=== PATIENT | male | born 1960 | race Caucasian/White ===

== ENCOUNTER 2017-07-20 08:59 | Emergency (ER) | payer BC ==
[2017-07-20 09:08] VITALS: BP 149/89; PULSE 67; TEMP 98.1; BMI 26.4
[2017-07-20] MEDS ORDERED: IBUPROFEN 400 MG TABLET (FP) PO ONE ×2 (09:17→09:42)
--- NOTE | 2017-07-20 09:48 | PDOC ---
History of Present Illness - General Chief Complaint: Pain Stated Complaint: LEFT RING FINGER PAIN Time Seen by Provider: 07/20/17 09:17 History Source: Patient Exam Limitations: No Limitations - History of Present Illness Initial Comments: 07/20/17 10:12 56y M no known pmhx presents with complaitn of L ring finger pain. Pt states that he was fine yesrtserday, went to bed, and this morning woke up with hand pain. He deneis any trauma/injuries yesterday. States that he ewnt to sleep with his hands interlocked across his belly, and he woke up suddenly last night with pain in his hand. pt is not sure what happened. deneis any numbness/ tingling/weakness. denies any other pain or discomfort including in his wrist, elbow, shoulders. pt localizes his pain primiarly to his L ring finger nuckle and states it hurts to move it. pt has not taken any pain mediine =prior to presentation. Past History - Past Medical History Allergies/Adverse Reactions: Allergies Allergy/AdvReac Type Severity Reaction Status Date / Time No Known Allergies Allergy Verified 07/20/17 09:02 Home Medications: Ambulatory Orders NK [No Known Home Medication] 09/30/15 COPD: No - Suicide/Smoking/Psychosocial Hx Smoking History: Never smoked Hx Alcohol Use: No Drug/Substance Use Hx: No Substance Use Type: None Review of Systems - Review of Systems Able to Perform ROS?: Yes Comments:: 07/20/17 10:14 Constitutional - no reported Fever, Chills, Musculskelatal - +L finger pain no reported back pain, joint swelling skin - no reported bruising, erythema, rash neurological: no reported numbness, focal weakness, tingling, hematologic: no reported anemia, easy bruising, easy bleeding *Physical Exam - Vital Signs Last Vital Signs Temp Pulse Resp BP Pulse Ox 98.1 F 67 15 149/89 100 07/20/17 09:00 07/20/17 09:00 07/20/17 09:00 07/20/17 09:00 07/20/17 09:00 - Physical Exam Comments: 07/20/17 10:14 GENERAL: The patient is awake, alert, and fully oriented, Nontoxic - in no acute distress. EXTREMITIES: Normal range of motion of his left shoulder, elbow, wrist, and all 4 digits except for the left ring finger, pain to passive range of motion of MCP and DIP joints. No deformities noted, Minimal edema, no erythema, induration , warmth,. no focal bony tenderness, sensation intact throughout ED Treatment Course - RADIOLOGY Radiology Studies Ordered: Category Date Time Status FINGER(S) LEFT [RAD] Stat Radiology 07/20/17 09:17 Ordered - Medications Given in the ED: ED Medications Discontinued Medications Generic Name Dose Route Start Last Admin Trade Name Betina PRN Reason Stop Dose Admin Ibuprofen 400 mg 07/20/17 09:17 07/20/17 09:44 Motrin - PO 07/20/17 09:18 400 mg ONCE ONE Administration Medical Decision Making - Medical Decision Making 07/20/17 10:15 Suspect possible finger trauma while the patient was asleep Will give the patient ibuprofen, we'll obtain x-ray to rule out fracture 07/20/17 10:20 no fractures appreciated on xray suspect strain will dc with supportive care return precutions were discussed I discussed the physical exam findings, ancillary test results and final diagnoses with the patient. I answered all of the patient's questions. The patient was satisfied with the care received and felt comfortable with the discharge plan and treatment plan. The patient will call their primary care physician within 24 hours to arrange follow-up and will return to the Emergency Department with any new, persistent or worsening symptoms. *DC/Admit/Observation/Transfer Diagnosis at time of Disposition: Finger pain, left - Discharge Dispostion Disposition: HOME Condition at time of disposition: Improved Admit: No - Referrals Referrals: Amador Hdz MD [Staff Physician] - - Patient Instructions Printed Discharge Instructions: DI for Finger Sprain Additional Instructions: Return to the emergency department immediately with ANY new, persistent or worsening symptoms. Take ibuprofen or Tylenol every 6 hours as needed for pain. Keep your hand elevated to minimize any swelling. Avoid any heavy lifting with your hand and fingers. It was no fracture is noted on your x-ray I suspect you may have inadvertently injured her finger or sprained her finger. Pain should get better after a few days, if doesn't improve 3-4 days follow-up with her primary care doctor for further evaluation. Results were discussed with you. Please make sure your doctor reviews the results of your emergency evaluation. Print Language: MOHAWK - Post Discharge Activity
== END 2017-07-20 10:30 | disposition home or self-care (01) ==
LOC: FER 08:59
DX: M79.645 Pain in left finger(s) (principal)
CPT/HCPCS: 73140-TC-LT-FY; 99281-25

== ENCOUNTER 2018-01-21 17:27 | Observation (INO) | payer BC ==
--- NOTE | 2018-01-21 17:41 | PDOC ---
History of Present Illness - General Chief Complaint: Chest Pain Stated Complaint: CHEST PAIN & ARM NUMBNESS Time Seen by Provider: 01/21/18 17:40 - History of Present Illness Initial Comments: 57 year old male with PMH of [place] (6 years prior s/p stent) presenting with 3-4 days of left sided chest presure with tingling and numbness down her left arm. [place] a sudden onset chest pressure 3 days prior without inciting injury or exertional event. Since then his pain has been constant and worsened during his sleep. In fact he woke up this AM diaphoretic. Of note, he is not on medication because he had insurance issues and decided not to follow up with a religion instructor. Denies any fevers, chills, nausea, vomiting, SOB, or other symptoms. 01/21/18 19:21 Past History - Past Medical History Allergies/Adverse Reactions: Allergies Allergy/AdvReac Type Severity Reaction Status Date / Time No Known Allergies Allergy Verified 01/21/18 17:49 Home Medications: Ambulatory Orders Cyclobenzaprine HCl [Flexeril 10 mg] 10 mg PO BID PRN 01/21/18 Ibuprofen 600 mg PO ONCE 01/21/18 COPD: No - Suicide/Smoking/Psychosocial Hx Smoking History: Never smoked Hx Alcohol Use: No Drug/Substance Use Hx: No Substance Use Type: None Review of Systems - Review of Systems Constitutional: Yes: Diaphoresis. No: Chills, Fever HEENTM: No: Blurred Vision Respiratory: No: Cough, Shortness of Breath, SOB with Exertion Cardiac (ROS): No: Edema, Irregular Heart Rate ABD/GI: No: Diarrhea, Nausea, Vomiting : No: Burning, Dysuria, Discharge, Hematuria Musculoskeletal: No: Back Pain, Joint Pain Integumentary: No: Bruising, Erythema, Flushing, Lesions Neurological: No: Headache, Numbness, Paresthesia Psychiatric: No: Anxiety, Depression Endocrine: No: Flushing, Intolerance to Heat Hematologic/Lymphatic: No: Anemia, Easy Bleeding, Easy Bruising *Physical Exam - Physical Exam General Appearance: Yes: Nourished, Appropriately Dressed, Other (slightly anxious). No: Apparent Distress HEENT: positive: EOMI, DEANA, Normal ENT Inspection, Normal Voice Neck: positive: Trachea midline, Normal Thyroid, Supple. negative: Tender, Rigid Respiratory/Chest: positive: Lungs Clear, Normal Breath Sounds. negative: Chest Tender, Respiratory Distress, Accessory Muscle Use Cardiovascular: positive: Regular Rhythm, Regular Rate Gastrointestinal/Abdominal: positive: Normal Bowel Sounds, Flat, Soft. negative : Tender Musculoskeletal: positive: Normal Inspection. negative: CVA Tenderness Extremity: positive: Normal Capillary Refill, Normal Inspection, Normal Range of Motion. negative: Tender Integumentary: positive: Normal Color, Dry, Warm Neurologic: positive: Fully Oriented, Alert, Normal Mood/Affect, Normal Response , Motor Strength 5/5 Heart Score/ECG Review - History History: Highly suspicious - Electrocardiogram EKG: Normal - Age Age: 45-65 - Risk Factors Risk Factors Heart Score: Yes Hx Hypertension, Yes Smoking History, Yes Positive family hx of cardiac disease, Yes Hx Obesity Based on the list above the patient has:: >/=3 risk factors or Hx atherosclerotic disease - Troponin Troponin: </= normal limit - Score Heart Score - Total: 5 ED Treatment Course - LABORATORY CBC & Chemistry Diagram: 01/21/18 18:05 01/21/18 18:05 Medical Decision Making - Medical Decision Making 57 year old male presenting with high risk chest pain and no medical follow up/ medication despite the fact the he has a stent. EKG demonstrating rate 69, ND interval 146, QRS 90, QTc 415 and borderline LVH. 01/21/18 19:30 Labs and troponin WNL will admit for ACS rule out under tele obs. 01/21/18 19:33 Signed out to SENA Judd for tele obs admission. 01/21/18 20:10 *DC/Admit/Observation/Transfer Diagnosis at time of Disposition: Chest pain Qualifiers: Chest pain type: unspecified Qualified Code(s): R07.9 - Chest pain, unspecified - Discharge Dispostion Condition at time of disposition: Good Decision to Admit order: Yes - Referrals - Patient Instructions - Post Discharge Activity
[2018-01-21] MEDS ORDERED: ASPIRIN 81 MG CHEWABLE TABLETS PO ONE (18:01)
--- NOTE | 2018-01-21 18:27 | PDOC ---
Attending Attestation - Resident Resident Name: Mariano Tirado - ED Attending Attestation I have performed the following: I have examined & evaluated the patient, The case was reviewed & discussed with the resident, I agree w/resident's findings & plan, Exceptions are as noted - HPI HPI: 01/21/18 18:47 The patient is a 57 year old male with a PMHx of [place] (6 years ago) s/p stent, who presents to the ED with chest pain. He describes his chest pain as left- sided, radiates to shoulder, with LUE numbness and tingling, worse when supine. Pain is pressure-like, constant a/w diaphoresis. Denies SOB, N/V. Tried ibuprofen for pain with no relief. Despite his stent, patient states that he is not currently on any medication and does not see a caridologist due to the fact that he has had some insurance issues. - Physicial Exam PE: 01/21/18 18:50 agree with resident exam - Medical Decision Making 01/21/18 18:50 57yo M hx CAD presents to the ED with CP. HS is 4-5. EKG with no STEMI, no previous EKG to compare. Pt given ASA 324mg, due to elevated HS, will admit to telemetry. Plan: labs tele cxr admit <Ramonita Nieves - Last Filed: 01/21/18 18:47> - Medical Decision Making Paged Dr. Betancur - Cardiology, Dr. Zaragoza is covering 01/21/18 20:28 <Nicol Renteria - Last Filed: 01/21/18 20:29> Heart Score/ECG Review - History History: Highly suspicious - Electrocardiogram EKG: Normal - Age Age: 45-65 - Risk Factors Risk Factors Heart Score: Yes Positive family hx of cardiac disease, Yes Hx Obesity Based on the list above the patient has:: 1-2 risk factors - Troponin Troponin: </= normal limit - Score Heart Score - Total: 4 #1 01/21/18 18:25 Twelve-lead EKG was performed and reviewed by me. Normal sinus rhythm, rate 69. Normal axis.+LVH. No ORALIA. No TWI in lead 3. No previous EKG in system <Ramonita Nieves - Last Filed: 01/21/18 18:47>
[2018-01-21] MEDS ORDERED: ASPIRIN 81 MG CHEWABLE TABLETS ONE (18:32)
[2018-01-21 19:03] LABS: ALK PHOS 52 U/L (32-92); ANION GAP 7 MMOL/L (8-16); BILIRUBIN,TOTAL 0.8 mg/dl (0.2-1.0); BLOOD UREA NITROGEN 19 mg/dl (7-18); CALCIUM 9.5 mg/dl (8.4-10.2); CHLORIDE 99 mmol/L (98-107); CO2 27 mmol/L (22-28); CREATININE 1.3 mg/dl (0.6-1.3); GLUCOSE,RANDOM 143 mg/dl (74-106); MAGNESIUM 2.1 mg/dL (1.8-2.4); PHOSPHOROUS 3.4 mg/dl (2.5-4.6); POTASSIUM 4.3 mmol/L (3.5-5.1); SGOT/AST 31 U/L (10-42); SGPT/ALT 31 U/L (10-40); SODIUM 133 mmol/L (136-145); TOT PROT 6.9 g/dl (6.4-8.3)
[2018-01-21 19:09] LABS: BASO % 0.6 % (0-2.0); EOS % 6.7 % (0-4.5); HEMATOCRIT 43.1 % (35.4-49); HEMOGLOBIN 15.1 GM/dl (11.7-16.9); LYMPH % 21.1 % (8-40); MCH 33.7 pg (25.7-33.7); MCHC 35.1 g/dl (32.0-35.9); MEAN PLT VOLUME 8.8 fl (7.5-11.1); MONO % 7.1 % (3.8-10.2); NEUT % 64.5 % (42.8-82.8); PLATELET COUNT 246 K/MM3 (134-434); RBC 4.48 M/mm3 (4.00-5.60); RDW 11.4 % (11.9-15.9); WHITE BLOOD COUNT 5.3 K/mm3 (4.0-10.8)
[2018-01-21 21:50] VITALS: BMI 27.1
--- NOTE | 2018-01-21 23:18 | HP ---
CHIEF COMPLAINT: chest pain PCP: Wilfrido, previously followed by glazier apprentice Dr. Skelton HISTORY OF PRESENT ILLNESS: This is a 57 year old male with a significant past medical history of [place] 6 or 7 years ago s/p 1 stent placement and HTN who presetnes to the EDwith Left sided CP with numbness and tingling down left arm x 3-4 days. The pain worsened last night and he awoke this morning diaphoretic. He has not followed up with a glazier apprentice or taken any medications for the past 2-3 years due to insurance reasons. Pt no longer has his stent card. His stent was placed at [facility]. ER course was notable for: (1) troponin neg x 1 (2) ECG without acute ST/T wave changes Recent Travel: pt denies PAST MEDICAL HISTORY: HTN, [place] 6-7 years ago, s/p stent placement PAST SURGICAL HISTORY: cardiac stent x 1, "left side" Social History: Smoking: quit 12 y ago, previously smoked 2-3 cig/day Alcohol: 1 bottle wine daily Drugs: pt denies Family History: mother age 78, [place], h/o DM father age 69, [place] 4 brothers, 2 sisters, all alive and well, no known medical problems Allergies No Known Allergies Allergy (Verified 01/21/18 17:49) HOME MEDICATIONS: 3 Medication Instructions Recorded Cyclobenzaprine HCl [Flexeril 10 10 mg PO BID PRN 01/21/18 mg] Ibuprofen 600 mg PO ONCE 01/21/18 REVIEW OF SYSTEMS CONSTITUTIONAL: Present: diaphoresis Absent: fever, chills, generalized weakness, malaise, loss of appetite, weight change HEENT: Absent: rhinorrhea, nasal congestion, throat pain, throat swelling, difficulty swallowing, mouth swelling, ear pain, eye pain, visual changes CARDIOVASCULAR: Present: chest pain Absent: syncope, palpitations, irregular heart rate, lightheadedness, peripheral edema RESPIRATORY: Absent: cough, shortness of breath, dyspnea with exertion, orthopnea, wheezing, stridor, hemoptysis GASTROINTESTINAL: Absent: abdominal pain, abdominal distension, nausea, vomiting, diarrhea, constipation, melena, hematochezia GENITOURINARY: Absent: dysuria, frequency, urgency, hesitancy, hematuria, flank pain, genital pain MUSCULOSKELETAL: Absent: myalgia, arthralgia, joint swelling, back pain, neck pain SKIN: Absent: rash, itching, pallor HEMATOLOGIC/IMMUNOLOGIC: Absent: easy bleeding, easy bruising, lymphadenopathy, frequent infections ENDOCRINE: Absent: unexplained weight gain, unexplained weight loss, heat intolerance, cold intolerance NEUROLOGIC: Absent: headache, focal weakness or paresthesias, dizziness, unsteady gait, seizure, mental status changes, bladder or bowel incontinence PSYCHIATRIC: Absent: anxiety, depression, suicidal or homicidal ideation, hallucinations. PHYSICAL EXAMINATION Vital Signs - 24 hr 3 01/21/18 01/21/18 01/21/18 17:28 17:54 19:18 Temperature 98.1 F 98.3 F Pulse Rate 73 Pulse Rate [ 67 68 Left Radial] Respiratory 16 16 16 Rate Blood Pressure 180/113 Blood Pressure 172/98 163/94 [Right Arm] O2 Sat by Pulse 98 97 95 Oximetry (%) 3 01/21/18 22:47 Temperature 98.0 F Pulse Rate 73 Pulse Rate [ Left Radial] Respiratory 18 Rate Blood Pressure 152/91 Blood Pressure [Right Arm] O2 Sat by Pulse 98 Oximetry (%) GENERAL: Awake, alert, and fully oriented, in no acute distress. HEAD: Normal with no signs of trauma. EYES: Pupils equal, round and reactive to light, extraocular movements intact, sclera anicteric, conjunctiva clear. No lid lag. EARS, NOSE, THROAT: Ears normal, nares patent, oropharynx clear without exudates. Moist mucous membranes. NECK: Normal range of motion, supple without lymphadenopathy, JVD, or masses. LUNGS: Breath sounds equal, clear to auscultation bilaterally. No wheezes, and no crackles. No accessory muscle use. HEART: Regular rate and rhythm, normal S1 and S2 without murmur, rub or gallop. ABDOMEN: Soft, nontender, not distended, normoactive bowel sounds, no guarding, no rebound, no masses. No hepatomegaly or splenomegaly. MUSCULOSKELETAL: Normal range of motion at all joints. No bony deformities or tenderness. No CVA tenderness. UPPER EXTREMITIES: 2+ pulses, warm, well-perfused. No cyanosis. No clubbing. No peripheral edema. LOWER EXTREMITIES: 2+ pulses, warm, well-perfused. No calf tenderness. No peripheral edema. NEUROLOGICAL: Cranial nerves II-XII intact. Normal speech. Normal gait. PSYCHIATRIC: Cooperative. Good eye contact. Appropriate mood and affect. SKIN: Warm, dry, normal turgor, no rashes or lesions noted, normal capillary refill. Laboratory Results - last 24 hr 3 01/21/18 01/21/18 01/21/18 18:05 18:05 18:05 WBC 5.3 RBC 4.48 Hgb 15.1 Hct 43.1 MCV 96.0 MCH 33.7 MCHC 35.1 RDW 11.4 L Plt Count 246 MPV 8.8 D Absolute Neuts (auto) 3.4 Neutrophils % 64.5 D Lymphocytes % 21.1 D Monocytes % 7.1 Eosinophils % 6.7 H Basophils % 0.6 Sodium 133 L Potassium 4.3 Chloride 99 Carbon Dioxide 27 Anion Gap 7 L BUN 19 H Creatinine 1.3 Creat Clearance w eGFR 57.10 Random Glucose 143 H D Calcium 9.5 Phosphorus 3.4 Magnesium 2.1 Total Bilirubin 0.8 AST 31 ALT 31 Alkaline Phosphatase 52 Troponin I < 0.03 Total Protein 6.9 Albumin 4.0 ECG Normal sinus vent rate 69, QTC 415 minimal voltage criteria for LVH, may be normal variant inferior infarct, age undetermined T wave inversion lead 3 old ECG unavailable for comparison Radiology Report CXR official read pending, no obvious infiltrates or effusions ASSESSMENT/PLAN: 57yM with PMH [place], HTN presented to the ED with chest pain. Chest pain r/o ACS - trop neg x 1, trend x 2 more - cardiology consult - cardiac monitoring - given ASA in ED - start metoprolol HTN - off meds x 2+ years - start metoprolol DVT PPX - heparin deferred for now FEN - tolerating po - bmp in am - low sodium diet Dispo: Pt currently requires further observation. Visit type - Emergency Visit Emergency Visit: Yes ED Registration Date: 01/21/18 Care time: The patient presented to the Emergency Department on the above date and was hospitalized for further evaluation of their emergent condition. - New Patient This patient is new to me today: Yes Date on this admission: 01/21/18 - Critical Care Critical Care patient: No Hospitalist Screening - Colonoscopy Questionnaire Colonoscopy Questionnaire: Colonoscopy Questionnaire - Patient: 50 - 75 years old and never had a screening colonoscopy: Yes History of colon or rectal polyps, or CA: No History of IBD, Crohn's disease or UC: No History of abdominal radiation therapy as a child: No - Relative: 1 with colon or rectal CA, or polyps at age 60 or younger: No Colon or rectal CA diagnosed at age 45 or younger: No Multiple relatives with colon or rectal CA: No - Outcome: Screening Result: Positive Screen
[2018-01-21] MEDS: METOPROLOL TARTRATE 25 MG TABLET (FP) PO SCH (23:26)
--- NOTE | 2018-01-22 08:00 | PN ---
Physical Exam: SUBJECTIVE: Patient seen and examined, Fiance at bedside patient is sitting in bed denies any chest pain or shortness of breath awaiting nuclear stress test OBJECTIVE: Patient is a 57-year-old male with a past medical history of HTN, [place] 6-7 years ago, s/p stent placement, The patient was admitted from emergency department to telemetry observation for chest pain rule out ACS Vital Signs Period Temp Pulse Resp BP Sys/Figueroa Pulse Ox Last 24 Hr 97.7 F-98.3 F 58-73 16-18 126-180/68-113 95-98 GENERAL: The patient is awake, alert, and fully oriented, in no acute distress. HEAD: Normal with no signs of trauma. EYES: PERRL, extraocular movements intact, sclera anicteric, conjunctiva clear. No ptosis. ENT: Ears normal, nares patent, oropharynx clear without exudates, moist mucous membranes. NECK: Trachea midline, full range of motion, supple. LUNGS: Breath sounds equal, clear to auscultation bilaterally, no wheezes, no crackles, no accessory muscle use. HEART: Regular rate and rhythm, S1, S2 without murmur, rub or gallop. ABDOMEN: Soft, nontender, nondistended, normoactive bowel sounds, no guarding, no rebound, no hepatosplenomegaly, no masses. EXTREMITIES: 2+ pulses, warm, well-perfused, no edema. NEUROLOGICAL: Cranial nerves II through XII grossly intact. Normal speech, gait not observed. PSYCH: Normal mood, normal affect. SKIN: Warm, dry, normal turgor, no rashes or lesions noted Laboratory Results - last 24 hr 01/21/18 01/21/18 01/21/18 18:05 18:05 18:05 WBC 5.3 RBC 4.48 Hgb 15.1 Hct 43.1 MCV 96.0 MCH 33.7 MCHC 35.1 RDW 11.4 L Plt Count 246 MPV 8.8 D Absolute Neuts (auto) 3.4 Neutrophils % 64.5 D Lymphocytes % 21.1 D Monocytes % 7.1 Eosinophils % 6.7 H Basophils % 0.6 Sodium 133 L Potassium 4.3 Chloride 99 Carbon Dioxide 27 Anion Gap 7 L BUN 19 H Creatinine 1.3 Creat Clearance w eGFR 57.10 Random Glucose 143 H D Calcium 9.5 Phosphorus 3.4 Magnesium 2.1 Total Bilirubin 0.8 AST 31 ALT 31 Alkaline Phosphatase 52 Creatine Kinase Creatine Kinase Index CK-MB (CK-2) Troponin I < 0.03 Total Protein 6.9 Albumin 4.0 01/22/18 00:35 WBC RBC Hgb Hct MCV MCH MCHC RDW Plt Count MPV Absolute Neuts (auto) Neutrophils % Lymphocytes % Monocytes % Eosinophils % Basophils % Sodium Potassium Chloride Carbon Dioxide Anion Gap BUN Creatinine Creat Clearance w eGFR Random Glucose Calcium Phosphorus Magnesium Total Bilirubin AST ALT Alkaline Phosphatase Creatine Kinase 183 Creatine Kinase Index 1.1 CK-MB (CK-2) 2.05 Troponin I < 0.02 Total Protein Albumin Laboratory Tests 01/21/18 01/22/18 01/22/18 18:05 00:35 11:01 Troponin I < 0.03 < 0.02 < 0.03 Active Medications Generic Name Dose Route Start Last Admin Trade Name Freq PRN Reason Stop Dose Admin Aspirin 81 mg 01/22/18 10:00 Asa - PO DAILY [facility] Metoprolol Tartrate 25 mg 01/21/18 23:30 01/21/18 23:26 Lopressor - PO 25 mg BID CHARLIE Administration ASSESSMENT/PLAN: 1) cardiovascular Chest pain r/o ACS - troponins 3 WNL - No events noted on cardiac monitoring - Pending lipid profile, continue aspirin daily, 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 Hernandez consulted and followed patient's pending nuclear stress test and echo today HTN - continue metoprolol, b/p at goal DVT PPX - heparin deferred for now FEN - tolerating po - bmp in am - low sodium diet Dispo: Pt currently requires further observation. Visit type - Emergency Visit Emergency Visit: Yes ED Registration Date: 01/21/18 Care time: The patient presented to the Emergency Department on the above date and was hospitalized for further evaluation of their emergent condition. - New Patient This patient is new to me today: Yes Date on this admission: 01/22/18 - Critical Care Critical Care patient: No - Discharge Referral Referred to [facility] Med [facility] No
[2018-01-22 08:59] LABS: BASO % 0.3 % (0-2.0); EOS % 1.8 % (0-4.5); HEMATOCRIT 43.8 % (35.4-49); HEMOGLOBIN 15.1 GM/dl (11.7-16.9); LYMPH % 17.3 % (8-40); MCH 33.3 pg (25.7-33.7); MCHC 34.6 g/dl (32.0-35.9); MEAN CELL VOLUME 96.2 fl (80-96); MEAN PLT VOLUME 8.4 fl (7.5-11.1); MONO % 5.8 % (3.8-10.2); NEUT % 74.8 % (42.8-82.8); PLATELET COUNT 251 K/MM3 (134-434); RBC 4.55 M/mm3 (4.00-5.60); RDW 11.5 % (11.9-15.9); WHITE BLOOD COUNT 9.4 K/mm3 (4.0-10.8)
[2018-01-22 09:14] LABS: ANION GAP 10 MMOL/L (8-16); BLOOD UREA NITROGEN 18 mg/dl (7-18); CALCIUM 9.7 mg/dl (8.4-10.2); CHLORIDE 102 mmol/L (98-107); CO2 26 mmol/L (22-28); GLUCOSE,RANDOM 105 mg/dl (74-106); PHOSPHOROUS 4.8 mg/dl (2.5-4.6); POTASSIUM 4.3 mmol/L (3.5-5.1); SODIUM 138 mmol/L (136-145)
--- NOTE | 2018-01-22 09:52 | CON.CARD ---
Consult Consult Specialty:: Cardiology Referred by:: Hospitalist Reason for Consultation:: Cardiac evaluation - History of Present Illness Chief Complaint: Chest pain History of Present Illness: Patient is a 57 year old male with underlying history of HTN and CAD s/p CT, PCI /stent (done at [facility] 6-7 years ago when being seen by Dr. Skelton) now presents with complaints of left sided chest discomfort radiating to left arm with numbness. He had not seen a accounting practice manager for past 2-3 years due to insurance reasons. He states that above symptoms occurred 2 nights ago and continued until last night. Currently, he appears asymptomatic. He denies SOB or palpitations. He denies nausea, vomiting, diarrhea or abdominal pain. He denies paroxysmal nocturnal dyspnea or orthopnea. He denies fever or chills. He denies headache or lightheadedness. - History Source History Provided By: Patient, Medical Record Limitations to Obtaining History: No Limitations - Past Medical History Cardio/Vascular: Yes: CAD, HTN, CT Endocrine: No: Diabetes Mellitus - Past Surgical History Past Surgical History: Yes: Stent - Alcohol/Substance Use Hx Alcohol Use: Yes (OCCAIONAL) History of Substance Use: reports: None - Smoking History Smoking history: Former smoker Have you smoked in the past 12 months: No Home Medications - Allergies Allergies/Adverse Reactions: Allergies Allergy/AdvReac Type Severity Reaction Status Date / Time No Known Allergies Allergy Verified 01/21/18 17:49 - Home Medications Home Medications: Ambulatory Orders Cyclobenzaprine HCl [Flexeril 10 mg] 10 mg PO BID PRN 01/21/18 Ibuprofen 600 mg PO ONCE 01/21/18 Family Disease History - Family Disease History Family Disease History: Heart Disease: Mother, Brother Review of Systems - Review of Systems Constitutional: denies: Chills, Fever Respiratory: denies: Cough, Hemoptysis, Orthopnea, PND, SOB, SOB on Exertion Gastrointestinal: denies: Abdominal Pain, Constipation, Diarrhea, Melena, Nausea , Rectal Bleeding, Vomiting Genitourinary: denies: Dysuria, Hematuria Neurological: denies: Dizziness, Headache, Seizure, Syncope Vital Signs: Vital Signs Temperature 97.7 F 01/22/18 04:41 Pulse Rate 58 L 01/22/18 04:41 Respiratory Rate 18 01/22/18 04:41 Blood Pressure 126/76 01/22/18 04:41 O2 Sat by Pulse Oximetry (%) 97 01/22/18 04:42 Neck: Yes: Supple Respiratory: Yes: CTA Bilaterally Gastrointestinal: Yes: Normal Bowel Sounds, Soft. No: Tenderness Cardiovascular: Yes: Regular Rate and Rhythm JVD: No Carotid Bruit: No PMI: Non-Displaced Heart Sounds: Yes: S1, S2 Murmur: No: Systolic Murmur, Diastolic Murmur Edema: No - Other Data Labs, Other Data: CBC, BMP 01/22/18 08:30 01/22/18 08:30 Troponin, BNP 01/21/18 01/22/18 18:05 00:35 Troponin I < 0.03 < 0.02 NSR, inferior infarct old Echo: Pending Problem List - Problems (1) CAD (coronary artery disease) Code(s): I25.10 - ATHSCL HEART DISEASE OF [place] CORONARY ARTERY W/O ANG PCTRS (2) History of percutaneous coronary intervention Code(s): Z98.890 - OTHER SPECIFIED POSTPROCEDURAL STATES (3) Chest pain Code(s): R07.9 - CHEST PAIN, UNSPECIFIED Qualifiers: Chest pain type: unspecified Qualified Code(s): R07.9 - Chest pain, unspecified (4) HTN (hypertension) Code(s): I10 - ESSENTIAL (PRIMARY) HYPERTENSION Assessment/Plan 1. CAD, history of CT s/p PCI/stent, angina 2. HTN PLAN: 1. Serial cardiac enzymes negative 2. Transthoracic echocardiography to assess LV/RV and valvular function 3. Consider nuclear MPI 4. ASA 5. Beta nehemias - Metoprolol ER 25 mg QD as tolerated 6. Follow lipid panel Further plans are to follow Omer Sauceda MD
[2018-01-22] MEDS: METOPROLOL TARTRATE 25 MG TABLET (FP) PO SCH (10:02)
[2018-01-22] MEDS: ASPIRIN 81 MG CHEWABLE TABLETS PO SCH (10:02)
--- NOTE | 2018-01-22 15:42 | ECHO ---
Name: DIEGO MARMOLEJO Exam:Adult Echocardiogram Study Date: 01/22/2018 01:53 PM Age: 57 yrs Reason For Study: CHEST PAIN Height: 68 in Weight: 175 lb BSA: 1.9 m2 MMode/2D Measurements & Calculations IVSd: 1.00 cm Ao root diam: 2.9 cm LVIDd: 4.6 cm LA dimension: 3.2 cm LVIDs: 3.1 cm LVPWd: 0.85 cm EDV(Teich): 97.0 ml LVOT diam: 2.3 cm ESV(Teich): 38.5 ml Doppler Measurements & Calculations MV E max behzad: 51.8 cm/sec TR max behzad: 207.0 cm/sec MV A max behzad: 77.0 cm/sec TR max P.1 mmHg MV E/A: 0.67 MV dec time: 0.24 sec Med Peak E' Behzad: 5.6 cm/sec Med E/e': 9.3 Lat Peak E' Behzad: 7.6 cm/sec Lat E/e': 6.8 Left Ventricle The left ventricular size, thickness and function are normal. LVEF = 65%. Right Ventricle The right ventricle is normal in size and function. Atria Normal left and right atrial size and function. Mitral Valve The mitral valve leaflets appear thickened, but open well. Tricuspid Valve The tricuspid valve is normal. There is mild tricuspid regurgitation. Right ventricular systolic pres sure is normal. Aortic Valve The aortic valve is normal in structure and function. Pulmonic Valve The pulmonic valve is not well seen, but is grossly normal. Great Vessels The aortic root is normal size. The pulmonary is not well visualized. Pericardium/Pleura There is no pericardial effusion. Interpretation Summary The left ventricular size, thickness and function are normal. LVEF = 65%. The right ventricle is normal in size and function. Normal left and right atrial size and function. No significant valvular abnormality. MD Ryanne Tabares 01/22/2018 03:42 PM
--- NOTE | 2018-01-22 17:19 | EKG ---
Test Reason : Blood Pressure : / mmHG Vent. Rate : 056 BPM Atrial Rate : 056 BPM P-R Int : 168 ms QRS Dur : 090 ms QT Int : 456 ms P-R-T Axes : 044 006 013 degrees QTc Int : 440 ms SINUS BRADYCARDIA INFERIOR INFARCT (CITED ON OR BEFORE 21-JAN-2018) ABNORMAL ECG Confirmed by MD FITZ, ANURAG ([id number]) on 01/22/2018 5:19:29 PM Referred By: SENA/DAMEON Confirmed By:ANURAG BYRNES MD
--- NOTE | 2018-01-22 17:20 | EKG ---
Test Reason : Blood Pressure : / mmHG Vent. Rate : 069 BPM Atrial Rate : 069 BPM P-R Int : 146 ms QRS Dur : 090 ms QT Int : 388 ms P-R-T Axes : 035 -10 011 degrees QTc Int : 415 ms NORMAL SINUS RHYTHM MINIMAL VOLTAGE CRITERIA FOR LVH, MAY BE NORMAL VARIANT INFERIOR INFARCT , AGE UNDETERMINED ABNORMAL ECG Confirmed by MD FITZ, ANURAG ([id number]) on 01/22/2018 5:19:48 PM Referred By: Dilcia NICHOLAS Confirmed By:ANURAG BYRNES MD
--- NOTE | 2018-01-23 07:52 | DS ---
Physical Exam: SUBJECTIVE: Patient seen and examined, Patient is ambulatory at bedside, denies any chest pain or shortness of breath reports feeling well, tolerating diet wants to go home OBJECTIVE:This is a 57 year old male with a significant past medical history of [place] 6 or 7 years ago s/p 1 stent placement and HTN who presetnes to the EDwith Left sided CP with numbness and tingling down left arm x 3-4 days. The pain worsened last night and he awoke this morning diaphoretic. He has not followed up with a battery plate assembler or taken any medications for the past 2-3 years due to insurance reasons. Pt no longer has his stent card. His stent was placed at [facility]. ER course was notable for: (1) troponin neg x 1 (2) ECG without acute ST/T wave changes Vital Signs Period Temp Pulse Resp BP Sys/Figueroa Pulse Ox Last 24 Hr 97.4 F-98.1 F 63-85 18-18 106-152/54-79 95-96 PHYSICAL EXAM GENERAL: The patient is awake, alert, and fully oriented, in no acute distress. HEAD: Normal with no signs of trauma. EYES: PERRL, extraocular movements intact, sclera anicteric, conjunctiva clear. ENT: Ears normal, nares patent, oropharynx clear without exudates, moist mucous membranes. NECK: Trachea midline, full range of motion, supple. LUNGS: Breath sounds equal, clear to auscultation bilaterally, no wheezes, no crackles, no accessory muscle use. HEART: Regular rate and rhythm, S1, S2 without murmur, rub or gallop. ABDOMEN: Soft, nontender, nondistended, normoactive bowel sounds, no guarding, no rebound, no hepatosplenomegaly, no masses. EXTREMITIES: 2+ pulses, warm, well-perfused, no edema. NEUROLOGICAL: Cranial nerves II through XII grossly intact. Normal speech, gait not observed. PSYCH: Normal mood, normal affect. SKIN: Warm, dry, normal turgor, no rashes or lesions noted. LABS Laboratory Results - last 24 hr 01/22/18 01/22/18 01/22/18 08:30 08:30 11:01 WBC 9.4 RBC 4.55 Hgb 15.1 Hct 43.8 MCV 96.2 H MCH 33.3 MCHC 34.6 RDW 11.5 L Plt Count 251 MPV 8.4 Absolute Neuts (auto) 7.1 Neutrophils % 74.8 Lymphocytes % 17.3 Monocytes % 5.8 Eosinophils % 1.8 Basophils % 0.3 Sodium 138 Potassium 4.3 Chloride 102 Carbon Dioxide 26 Anion Gap 10 BUN 18 Creatinine 1.0 Creat Clearance w eGFR > 60 Random Glucose 105 D Calcium 9.7 Phosphorus 4.8 H D Magnesium 2.0 Creatine Kinase Troponin I < 0.03 01/22/18 11:01 WBC RBC Hgb Hct MCV MCH MCHC RDW Plt Count MPV Absolute Neuts (auto) Neutrophils % Lymphocytes % Monocytes % Eosinophils % Basophils % Sodium Potassium Chloride Carbon Dioxide Anion Gap BUN Creatinine Creat Clearance w eGFR Random Glucose Calcium Phosphorus Magnesium Creatine Kinase 147 Troponin I Laboratory Tests 01/21/18 01/22/18 01/22/18 18:05 00:35 11:01 Troponin I < 0.03 < 0.02 < 0.03 IMAGING Chest x-ray no Infiltrates no effusions noted echo: lvef 65% nuclear stress test: no chest pain, a small and mild fixed distal inferior wall defect with mild edson-infarct ischemia, normal LV Size, LVEF-51% HOSPITAL COURSE: Patient was admitted from the emergency department to observation telemetry for chest pain rule out ACS. Troponin 3 WNL. No evidence of cardiac monitoring. Nuclear stress test notable as above. Patient was placed on aspirin and Toprol daily. Lipid profile is pending patient was placed on Lipitor. Patient is a past medical history of hypertension, toprol was continued. Date of Admission:01/21/18 Date of Discharge: 01/23/18 Minutes to complete discharge: 45 Discharge Summary Reason For Visit: CHEST PAIN & ARM NUMBNESS Current Active Problems CAD (coronary artery disease) (Acute) Chest pain (Acute) HTN (hypertension) (Acute) History of percutaneous coronary intervention (Acute) Condition: Improved - Instructions Diet, Activity, Other Instructions: Continue heart healthy diet Continue Toprol Lipitor and aspirin daily as prescribed If any new or persistent symptoms develop please return to the emergency department Please follow up with your battery plate assembler within 2 weeks Referrals: Bhanu Betancur MD [Staff Physician] - Disposition: HOME - Home Medications Comprehensive Discharge Medication List: Ambulatory Orders Cyclobenzaprine HCl [Flexeril 10 mg] 10 mg PO BID PRN 01/21/18 RX: Ibuprofen 600 mg PO ONCE 01/21/18 This patient is new to me today: Yes Date on this admission: 01/28/18 Emergency Visit: No Critical Care patient: No - Discharge Referral Referred to [facility] Med P.C.: No
[2018-01-23] MEDS ORDERED: metoPROLOL SUCCINATE 25 MG TAB.SR.24H (FP) PO SCH (10:00)
[2018-01-23] MEDS: ASPIRIN 81 MG CHEWABLE TABLETS PO SCH (10:14)
--- NOTE | 2018-01-23 11:19 | PN ---
Progress Note, Physician History of Present Illness: No further angina on Toprol XL. - Current Medication List Current Medications: Active Medications Aspirin (Asa -) 81 mg PO DAILY [facility] Last Admin: 01/23/18 10:14 Dose: 81 mg Metoprolol Succinate (Toprol Xl -) 25 mg PO DAILY [facility] Last Admin: 01/23/18 10:14 Dose: 25 mg - Objective Vital Signs: Vital Signs Temperature 97.6 F 01/23/18 05:47 Pulse Rate 63 01/23/18 05:47 Respiratory Rate 18 01/23/18 05:47 Blood Pressure 106/54 01/23/18 05:47 O2 Sat by Pulse Oximetry (%) 96 01/23/18 09:00 Constitutional: Yes: No Distress, Calm Neck: Yes: Supple Cardiovascular: Yes: Regular Rate and Rhythm Respiratory: Yes: Regular, CTA Bilaterally Gastrointestinal: Yes: Normal Bowel Sounds, Soft Edema: No Labs: CBC, BMP 01/22/18 08:30 01/22/18 08:30 - ....Imaging EKG: Report Reviewed (Tele: NSR) Problem List - Problems (1) Angina pectoris Code(s): I20.9 - ANGINA PECTORIS, UNSPECIFIED (2) CAD (coronary artery disease) Code(s): I25.10 - ATHSCL HEART DISEASE OF [place] CORONARY ARTERY W/O ANG PCTRS Qualifiers: Coronary Disease-Associated Artery/Lesion type: [place] artery [place] vs. transplanted heart: [place] heart Associated angina: with stable angina Qualified Code(s): I25.118 - Atherosclerotic heart disease of [place] coronary artery with other forms of angina pectoris (3) HTN (hypertension) Code(s): I10 - ESSENTIAL (PRIMARY) HYPERTENSION Qualifiers: Hypertension type: essential hypertension Qualified Code(s): I10 - Essential (primary) hypertension (4) History of percutaneous coronary intervention Code(s): Z98.890 - OTHER SPECIFIED POSTPROCEDURAL STATES (5) Old myocardial infarction Code(s): I25.2 - OLD MYOCARDIAL INFARCTION Assessment/Plan 01/22/2018 Echo: Normal LV and RV size and fxn without sig valve abnl 01/22/2018 Nuc stress: 13 min stage V jaime protocol achieving 91% MPHR without ischemic ecg or symptoms. MPI shows small mild fixed distal inferior wall with mild edson-infarct ischemia LVEF 51% 1. CAD, history of MS s/p PCI/stent, angina pectoris 2. HTN PLAN: 1. Ruled out for MS 2. Continue ASA 81 qd, Metoprolol ER 25 mg QD, add Lipitor 10 qd and titrate to achieve LDL<70 3. September d/c with f/u in cardiology office [phone]
[2018-01-23 11:24] VITALS: BP 120/67; PULSE 68; TEMP 97.7
== END 2018-01-23 12:17 | disposition home or self-care (01) ==
LOC: FER 17:27 → FM/S 19:59
PROVIDERS: ADMIT Internal Medicine; ATTEND Nurse Practitioner Family
DX: R07.9 Chest pain, unspecified (principal); I25.119 Atherosclerotic heart disease of native coronary artery with unspecified angina pectoris; I10 Essential (primary) hypertension; I25.2 Old myocardial infarction; Z95.5 Presence of coronary angioplasty implant and graft; R20.0 Anesthesia of skin
CPT/HCPCS: 36415; 71045-TC-FY; 78452-TC; 80048; 80053; 82550; 82553; 83735; 84100; 84484; 85025; 93005; 93017; 93306-TC; 99284-25; A9502; G0378

== ENCOUNTER 2018-04-03 08:02 | Day surgery (SDC) | payer BC ==
[2018-03-29 11:06] VITALS: BMI 26.6
[2018-04-03] MEDS: CIPROFLOXACIN 0.3% EYE DROPS 5 ML BOTTLE ONE ×3 (08:35→08:45)
[2018-04-03] MEDS: PHENYLEPHRINE 2.5% OPHTH SOLN 15 ML BOTTLE ONE ×3 (08:35→08:45)
[2018-04-03] MEDS: TROPICAMIDE 1% OPHTH SOLN 15 ML BOTTLE ONE ×3 (08:35→08:45)
[2018-04-03] MEDS: CYCLOPENTOLATE 2% OPHTH SOLN 2 ML BOTTLE ONE ×3 (08:35→08:45)
[2018-04-03] MEDS ORDERED: MIDAZOLAM HCL 2 MG/2 ML SINGLE DOSE VIAL ONE ×2 (09:39→09:56)
[2018-04-03] MEDS ORDERED: CARBACHOL 0.01% INTRA-OCULAR 1.5 ML VIAL ONE (09:40)
[2018-04-03] MEDS ORDERED: BSS (NA/CA/MG/K) BALANCED SALT SOLUTION OPHTH SOLN 15 ML BOTTLE ONE (09:40)
[2018-04-03] MEDS ORDERED: ONDANSETRON 4 MG/2 ML VIAL ONE (09:51)
[2018-04-03] MEDS ORDERED: KETOROLAC TROMETHAMINE 30 MG/1 ML VIAL ONE (09:51)
[2018-04-03 10:39] VITALS: TEMP 98.2
--- NOTE | 2018-04-03 10:59 | OP ---
DATE OF OPERATION: 04/03/2018 OPERATIVE PROCEDURE: Lens Phacoemulsification with Posterior Chamber Intraocular Lens Placement Left Eye PREOPERATIVE DIAGNOSIS: Visually Significant Cataract of Left Eye POSTOPERATIVE DIAGNOSIS: Visually Significant Cataract of Left Eye SURGEON: Td Farnsworth M.D. ANESTHESIA: MAC ANESTHESIOLOGIST: PROCEDURE: The patient was brought to the operating room and placed under monitored anesthesia care by Anesthesia. A drop of Tetracaine was then placed over the left eye. The patient was then prepped and draped in the usual sterile manner. A speculum was then placed over the left eye. The eye was then well irrigated with copious amounts of BSS (balanced salt solution). The operating microscope was then moved into position. A paracentesis was performed using a 15 degree blade. At this point 0.5 mL of 1% preservative-free lidocaine was injected into the anterior chamber. Amvisc plus was then injected into the anterior chamber. A clear corneal incision was then formed using a 2.2 mm keratome. A capsulorrhexis was then performed in a continuous circular fashion beginning with a cystotome, completed with an Utratas forceps. Hydrodissection was then performed using BSS on a cannula. The phaco probe was then introduced through the corneal wound and the cataract was removed using the phaco chop technique. Approximately 3 seconds of absolute phaco time was used. The remaining cortex was then removed using irrigation and aspiration with an I/A probe. The capsule was then filled with regular Amvisc and the capsule was noted to be intact. A previously selected foldable posterior chamber intraocular lens was then injected into the capsule through the corneal wound using a lens injector. It was then dialed into position using a [place] hook. The Amvisc was then removed using irrigation and aspiration. Miostat was then injected through the paracentesis to constrict the pupil. The paracentesis and corneal wound were then hydrated and noted to be water tight. A drop of Maxitrol was then placed over the eye. The speculum was removed and clear shield was taped over the eye. The patient tolerated the procedure well and there were no surgical complications. The patient was asked to follow up in my office the next day. TD FARNSWORTH M.D. BETH/[id number]
[2018-04-03 11:01] VITALS: BP 118/69; PULSE 61
== END 2018-04-03 11:30 | disposition home or self-care (01) ==
LOC: FASU 08:02
PROVIDERS: ATTEND Ophthalmology
PROC: 08RK3JZ Replacement of Left Lens with Synthetic Substitute, Percutaneous Approach (ICD-10-PCS; principal; 2018-04-03 09:58)
DX: H26.8 Other specified cataract (principal)

== ENCOUNTER 2019-03-12 08:30 | Day surgery (SDC) | payer BC ==
[2019-03-10 09:54] VITALS: BMI 26.3
[2019-03-12] MEDS ORDERED: MIDAZOLAM HCL 2 MG/2 ML SINGLE DOSE VIAL ONE (08:54)
[2019-03-12] MEDS: PHENYLEPHRINE 2.5% OPHTH SOLN 15 ML BOTTLE ONE ×3 (09:25→09:35)
[2019-03-12] MEDS: CIPROFLOXACIN 0.3% EYE DROPS 5 ML BOTTLE ONE ×3 (09:25→09:35)
[2019-03-12] MEDS: TROPICAMIDE 1% OPHTH SOLN 15 ML BOTTLE ONE ×3 (09:25→09:35)
[2019-03-12] MEDS: CYCLOPENTOLATE 2% OPHTH SOLN 2 ML BOTTLE ONE ×3 (09:25→09:35)
[2019-03-12] MEDS ORDERED: NEO/POLYMYX B SULF/DEXAMETH OPHTHALMIC 5ML BOTTLE ONE (10:16)
[2019-03-12] MEDS ORDERED: BSS (NA/CA/MG/K) BALANCED SALT SOLUTION OPHTH SOLN 15 ML BOTTLE ONE (10:16)
[2019-03-12] MEDS ORDERED: CARBACHOL 0.01% INTRA-OCULAR 1.5 ML VIAL ONE (10:16)
[2019-03-12 11:49] VITALS: BP 130/74; PULSE 61; TEMP 97.8
--- NOTE | 2019-03-12 23:11 | OP ---
DATE OF OPERATION: 03/12/2019 OPERATIVE PROCEDURE: Lens Phacoemulsification with Posterior Chamber Intraocular Lens Placement Right Eye PREOPERATIVE DIAGNOSIS: Visually Significant Cataract of Right Eye POSTOPERATIVE DIAGNOSIS: Visually Significant Cataract of Right Eye SURGEON: Td Farnsworth M.D. ANESTHESIA: MAC PROCEDURE: The patient was brought to the operating room and placed under monitored anesthesia care by Anesthesia. A drop of Tetracaine was then placed over the right eye. The patient was then prepped and draped in the usual sterile manner. A speculum was then placed over the right eye. The eye was then well irrigated with copious amounts of BSS (balanced salt solution). The operating microscope was then moved into position. A paracentesis was performed using a 15 degree blade. At this point 0.5 mL of 1% preservative-free lidocaine was injected into the anterior chamber. Amvisc plus was then injected into the anterior chamber. A clear corneal incision was then formed using a 2.2 mm keratome. A capsulorrhexis was then performed in a continuous circular fashion beginning with a cystotome, completed with an Utratas forceps. Hydrodissection was then performed using BSS on a cannula. The phaco probe was then introduced through the corneal wound and the cataract was removed using the phaco chop technique. Approximately 3 seconds of absolute phaco time was used. The remaining cortex was then removed using irrigation and aspiration with an I/A probe. The capsule was then filled with regular Amvisc and the capsule was noted to be intact. A previously selected foldable posterior chamber intraocular lens was then injected into the capsule through the corneal wound using a lens injector. It was then dialed into position using a [place] hook. The Amvisc was then removed using irrigation and aspiration. Miostat was then injected through the paracentesis to constrict the pupil. The paracentesis and corneal wound were then hydrated and noted to be water tight. A drop of Maxitrol was then placed over the eye. The speculum was removed and clear shield was taped over the eye. The patient tolerated the procedure well and there were no surgical complications. The patient was asked to follow up in my office the next day. TD FARNSWORTH M.D. BETH/[id number]
== END 2019-03-12 11:35 | disposition home or self-care (01) ==
LOC: FASU 08:30
PROVIDERS: ATTEND Ophthalmology
PROC: 08RJ3JZ Replacement of Right Lens with Synthetic Substitute, Percutaneous Approach (ICD-10-PCS; principal; 2019-03-12 10:33)
DX: H26.8 Other specified cataract (principal)